=== PATIENT | female | born 1990 | race African-American/Black ===

== ENCOUNTER 2020-11-18 14:23 | Emergency (ER) | payer BC ==
[2020-11-18] MEDS ORDERED: Ketorolac 30 MG/ML SDV IVPUSH ONE (18:12)
[2020-11-18] MEDS ORDERED: Sodium Chloride 0.9% 2.5 ML Syringe FLUSH PRN (18:12)
[2020-11-18] MEDS ORDERED: Sodium Chloride 0.9% 10 ML Syringe FLUSH PRN (18:12)
[2020-11-18] MEDS ORDERED: Sodium Chloride 0.9% 1,000 ML IV ONE (18:12)
[2020-11-18] MEDS ORDERED: Ondansetron 4 MG/2 ML SDV IVPUSH ONE (18:12)
--- NOTE | 2020-11-18 18:13 | EDM.PDOC ---
ED HPI GENERAL MEDICAL PROBLEM - General Chief Complaint: Gastrointestinal Problem Stated Complaint: ABDOMINAL PAIN AND DIZZINESS Time Seen by Provider: 11/18/20 18:05 Source of Information: Reports: Patient History Limitations: Reports: No Limitations - History of Present Illness INITIAL COMMENTS - FREE TEXT/NARRATIVE: HISTORY AND PHYSICAL: History of present illness: The patient is a 30-year-old female who presents to the emergency room with complaints of right flank pain, dizziness and nausea for the past 2 weeks. She states that her right flank pain is intermittent and as she gets the pain she becomes nauseated and dizzy. She has been unable to eat normally or drink normally. The patient denies any kind of urinary symptoms such as dysuria, frequency, or hematuria. The patient has not been taking any [id number] medications for her pain or discomfort. The patient has never experienced any pain like this previously. Patient denies any fever, chills, headache, change in vision, syncope or near syncope. Denies any chest pain, back pain, shortness of breath or cough. Denies any diarrhea or constipation. In the emergency department the patient is hemodynamically stable with a pulse of 66 and a blood pressure of 126/86. The patient is afebrile with a temperature of 97.2. The patient's SPO2 is 96% on room air. Review of systems: As per history of present illness and below otherwise all systems reviewed and negative. Past medical history: As per history of present illness and as reviewed below otherwise noncontributory. Surgical history: As per history of present illness and as reviewed below otherwise noncontributory. Social history: See social history for further information Family history: As per history of present illness and as reviewed below otherwise noncontributory. Physical exam: General: Well developed and well nourished. Alert and orientated x 3. Nontoxic in appearance and in no acute distress. Vital signs are stable and have been reviewed by me. Nursing notes were reviewed. HEENT: Atraumatic, normocephalic, pupils equal and reactive bilaterally, negative for conjunctival pallor or scleral icterus, mucous membranes moist, TMs normal bilaterally, throat clear, neck supple, nontender, trachea midline. No drooling or trismus noted. No meningeal signs. No hot potato voice noted. Lungs: Clear to auscultation bilaterally. No wheezes, rales, or rhonchi. Chest nontender. Normal work of breathing, no accessory muscles used. Heart: S1S2, regular rate and rhythm without overt murmur, gallops, or rubs. No JVD. No peripheral edema Abdomen: Soft, nondistended, right tenderness. Normoactive bowel sounds. Negative for masses. Right costovertebral tenderness. Skin: Intact, warm, dry. No lesions or rashes noted. Hematologic: No petechiae or purpra. Mucosa appropriate color and normal nail bed color and refill. Extremities: Atraumatic, moves all extremities per self without difficulty or deficits, negative for cords or calf pain. Neurovascular unremarkable. Neuro: Awake, alert, oriented. Cranial nerves II through XII unremarkable. Cerebellum unremarkable. Motor and sensory unremarkable throughout. Exam no nfocal. Psychiatric: Mood and affect are appropriate. Normal thought process. Answering questions appropriately. Notes: *This patient was seen and evaluated during the 2019 SARS-CoV-2 [facility] pandemic period. Community viral transmission is ongoing at time of this encounter and the emergency department is operating under pandemic response procedures. As stated above the patient is a 30-year-old female who presents to the emergency room with increasing right flank pain that started approximately 2 weeks ago. The pain is intermittent and when it comes the patient becomes dizzy and nauseated. She has been decreasing her food intake and her fluid intake. I will obtain a CBC, CMP, and abdominal/pelvis CT. To rule out any metabolic. We will give the patient IV fluids, Toradol for her pain and Zofran for nausea. The patient is agreeable with this plan. Patient had further complaints of pain I prescribed a Dilaudid 1 mg IV. Abdomen/pelvis CT MPRESSION: Negative noncontrast CT of the abdomen and pelvis. No finding to explain abdominal pain or distention. Specifically the GI tract is normal. The patient CBC is unremarkable. The patient's CMP is unremarkable. The patient's urinalysis does show some trace protein trace ketones and trace leukocyte Estrace. Negative for nitrate. Most likely from a contaminant. Form the patient of the results. While I cannot identify the patient's source of right flank pain I do not find any emergent cause. As this could be muscular in nature I will give the patient Norflex 60 mg IM in the emergency room. Any prescription for Norflex 100 mg p.o. twice daily for 10 days. I have advised the patient to follow-up with her primary care for further work-up. I gave the patient symptoms for return to the emergency department. The patient verbalized understanding and is agreeable with this discharge plan. I have talked with the patient about today's findings, in addition to providing specific details for plan of care. Reassessment at the time of disposition demonstrates that the patient is in no acute distress. The patient is stable for discharge, counseling was provided and we discussed in great detail signs and symptoms that would prompt them to return to the Emergency Department. Medication, follow up and supportive care measures were reviewed and discussed. Voices understanding and is agreeable to plan of care. Denies any further questions or concerns at this time. Diagnostics: CT, CMP, abdomen/pelvis CT Therapeutics: Fluids, Toradol, Zofran Impression: Abdominal pain Plan: 1. You were evaluated today on an emergent basis. Your complaints of right abdominal and flank pain were evaluated with blood work which was normal. Your urinalysis did not reveal an infection. Your abdomen pelvis CT was negative. You were treated with IV fluids, Toradol for pain control and Zofran for your nausea. You were then treated with Dilaudid which is a narcotic for increased pain. You cannot drive for at least 8 hours after having the Dilaudid. As this could be muscular in nature you were treated with Norflex 60 mg intramuscularly. Have given you a prescription for Norflex 100 mg twice a day for 10 days as needed for pain. I am unable to explain why you are having abdominal pain but it does not appear to be anything emergent. You need to follow-up with your primary care or TRAINING OFFICER for more definitive care. If your pain worsens and you are unable to get relief please return to the emergency department. 2. You can Tylenol 650 mg every 4 hours as needed for pain. You can use Motrin 600 mg every 6 hours as needed for pain. 3. We encourage you to follow up with your primary care provider and/or recommended specialist in the next few days for re-evaluation and further care/management. 4. If your symptoms should worsen, new symptoms develop or any of the signs and symptoms we discussed should arise please return to the emergency room or call 911 (if needed). Definitive disposition and diagnosis as appropriate pending reevaluation and review of above. right lower quadrant Pain Score (Numeric/FACES): 7 - Related Data Allergies Allergy/AdvReac Type Severity Reaction Status Date / Time No Known Allergies Allergy Verified 11/18/20 15:45 Home Meds: Home Meds Orphenadrine [Norflex] 100 mg PO BID PRN 10 Days #20 tab 11/18/20 [Rx] Past Medical History - Past Health History Medical/Surgical History: Denies Medical/Surgical History - Infectious Disease History Infectious Disease History: Reports: Chicken Pox Social & Family History - Tobacco Use Tobacco Use Status *Q: Never Tobacco User - Recreational Drug Use Recreational Drug Use: No ED ROS GENERAL - Review of Systems Review Of Systems: Comprehensive ROS is negative, except as noted in HPI. ED EXAM, RENAL/ - Physical Exam Exam: See Below (See dictation) Course - Vital Signs Last Recorded V/S: Last Vital Signs Temp 97.2 F 11/18/20 15:42 Pulse 80 11/18/20 20:07 Resp 19 11/18/20 20:07 BP 131/84 11/18/20 20:07 Pulse Ox 97 11/18/20 20:07 - Orders/Labs/Meds Labs: Laboratory Tests 11/18/20 11/18/20 11/18/20 Range/Units 15:49 18:28 18:28 WBC 9.25 (4.0-11.0) K/uL RBC 5.23 (4.30-5.90) M/uL Hgb 14.1 (12.0-16.0) g/dL Hct 40.8 (36.0-46.0) % MCV 78.0 L (80.0-98.0) fL MCH 27.0 (27.0-32.0) pg MCHC 34.6 (31.0-37.0) g/dL RDW Std Deviation 43.5 (28.0-62.0) fl RDW Coeff of Yakov 15 (11.0-15.0) % Plt Count 325 (150-400) K/uL MPV 8.80 (7.40-12.00) fL Neut % (Auto) 57.2 (48.0-80.0) % Lymph % (Auto) 33.7 (16.0-40.0) % [place] % (Auto) 8.5 (0.0-15.0) % Eos % (Auto) 0.3 (0.0-7.0) % Baso % (Auto) 0.3 (0.0-1.5) % Neut # (Auto) 5.3 (1.4-5.7) K/uL Lymph # (Auto) 3.1 H (0.6-2.4) K/uL [place] # (Auto) 0.8 (0.0-0.8) K/uL Eos # (Auto) 0.0 (0.0-0.7) K/uL Baso # (Auto) 0.0 (0.0-0.1) K/uL Nucleated RBC % 0.0 /100WBC Nucleated RBCs # 0 K/uL Sodium 136 (136-145) mmol/L Potassium 4.2 (3.5-5.1) mmol/L Chloride 102 (98-107) mmol/L Carbon Dioxide 24.3 (21.0-32.0) mmol/L BUN 13 (7.0-18.0) mg/dL Creatinine 0.8 (0.6-1.0) mg/dL Est Cr Clr Drug Dosing 101.81 mL/min Estimated GFR (MDRD) > 60.0 ml/min Glucose 104 (74-106) mg/dL Calcium 9.2 (8.5-10.1) mg/dL Total Bilirubin 0.3 (0.2-1.0) mg/dL AST 31 (15-37) IU/L ALT 35 (14-63) IU/L Alkaline Phosphatase 105 (46-116) U/L Total Protein 8.7 H (6.4-8.2) g/dL Albumin 3.9 (3.4-5.0) g/dL Globulin 4.8 H (2.6-4.0) g/dL Albumin/Globulin Ratio 0.8 L (0.9-1.6) Urine Color YELLOW Urine Appearance CLEAR Urine pH 6.0 (5.0-8.0) Ur Specific [place] 1.025 (1.001-1.035) Urine Protein TRACE H (NEGATIVE) mg/dL Urine Glucose (UA) NEGATIVE (NEGATIVE) mg/dL Urine Ketones TRACE H (NEGATIVE) mg/dL Urine Occult Blood NEGATIVE (NEGATIVE) Urine Nitrite NEGATIVE (NEGATIVE) Urine Bilirubin NEGATIVE (NEGATIVE) Urine Urobilinogen 0.2 (<2.0) EU/dL Ur Leukocyte Esterase TRACE H (NEGATIVE) Urine RBC 0-1 (0-2/HPF) Urine WBC 0-2 (0-5/HPF) Ur Epithelial Cells FEW (NONE-FEW) Urine Bacteria FEW (NEGATIVE) Meds: Medications Discontinued Medications Generic Name Dose Route Start Last Admin Trade Name Freq PRN Reason Stop Dose Admin Hydromorphone HCl 1 mg 11/18/20 19:16 11/18/20 20:00 Hydromorphone 1 Mg/Ml Syringe IVPUSH 11/18/20 19:17 Not Given ONETIME ONE Sodium Chloride 1,000 mls @ 999 mls/hr 11/18/20 18:12 11/18/20 18:36 Normal Saline IV 11/18/20 19:12 999 mls/hr .BOLUS ONE Administration Ketorolac Tromethamine 30 mg 11/18/20 18:12 11/18/20 18:39 Ketorolac 30 Mg/Ml Sdv IVPUSH 11/18/20 18:13 30 mg ONETIME ONE Administration Ondansetron HCl 4 mg 11/18/20 18:12 11/18/20 18:37 Ondansetron 4 Mg/2 Ml Sdv IVPUSH 11/18/20 18:13 4 mg ONETIME ONE Administration Orphenadrine Citrate 60 mg 11/18/20 19:33 Orphenadrine 60 Mg/2 Ml Inj IM 11/18/20 19:34 ONETIME ONE Orphenadrine Citrate 60 mg 11/18/20 19:36 Orphenadrine 60 Mg/2 Ml Inj IM 11/18/20 19:37 ONETIME ONE Orphenadrine Citrate 60 mg 11/18/20 20:02 11/18/20 20:05 Orphenadrine 60 Mg/2 Ml Inj IM 11/18/20 20:03 60 mg ONETIME ONE Administration Orphenadrine Citrate Confirm 11/18/20 20:03 11/18/20 20:06 Orphenadrine 60 Mg/2 Ml Inj Administered 11/18/20 20:04 Not Given Dose 60 mg .ROUTE .STK-MED ONE Sodium Chloride 10 ml 11/18/20 18:12 11/18/20 18:42 Sodium Chloride 0.9% 10 Ml Syringe FLUSH 10 ml ASDIRECTED PRN Administration Keep Vein Open Sodium Chloride 2.5 ml 11/18/20 18:12 11/18/20 18:42 Sodium Chloride 0.9% 2.5 Ml Syringe FLUSH 2.5 ml ASDIRECTED PRN Administration Keep Vein Open Departure - Departure Time of Disposition: 19:41 Disposition: Home, Self-Care 01 Condition: Good Clinical Impression: Abdominal pain - Discharge Information *PRESCRIPTION DRUG MONITORING PROGRAM REVIEWED*: Not Applicable *COPY OF PRESCRIPTION DRUG MONITORING REPORT IN PATIENT MICHELLE: Not Applicable Prescriptions: Orphenadrine [Norflex] 100 mg PO BID PRN 10 Days #20 tab PRN Reason: Muscle Spasm - Painful Instructions: Abdominal Pain, Adult, [id number] Referrals: PCP,None [Primary Care Provider] - Forms: ED Department Discharge Additional Instructions: The following information is given to patients seen in the emergency department who are being discharged to home. This information is to outline your options for follow-up care. We provide all patients seen in our emergency department with a follow-up referral. The need for follow-up, as well as the timing and circumstances, are variable depending upon the specifics of your emergency department visit. If you don't have a primary care physician on staff, we will provide you with a referral. We always advise you to contact your personal physician following an emergency department visit to inform them of the circumstance of the visit and for follow-up with them and/or the need for any referrals to a consulting specialist. The emergency department will also refer you to a specialist when appropriate. This referral assures that you have the opportunity for follow-up care with a specialist. All of these measure are taken in an effort to provide you with optimal care, which includes your follow-up. Under all circumstances we always encourage you to contact your private physician who remains a resource for coordinating your care. When calling for follow-up care, please make the office aware that this follow-up is from your recent emergency room visit. If for any reason you are refused follow-up, please contact the [facility] Emergency Department at and asked to speak to the emergency department charge nurse. [facility] [address] [place] [id number] [address] [address] Plan: 1. You were evaluated today on an emergent basis. Your complaints of right abdominal and flank pain were evaluated with blood work which was normal. Your urinalysis did not reveal an infection. Your abdomen pelvis CT was negative. You were treated with IV fluids, Toradol for pain control and Zofran for your nausea. You were then treated with Dilaudid which is a narcotic for increased pain. You cannot drive for at least 8 hours after having the Dilaudid. As this could be muscular in nature you were treated with Norflex 60 mg intramuscularly. Have given you a prescription for Norflex 100 mg twice a day for 10 days as needed for pain. I am unable to explain why you are having abdominal pain but it does not appear to be anything emergent. You need to follow-up with your primary care or TRAINING OFFICER for more definitive care. If your pain worsens and you are unable to get relief please return to the emergency department. 2. You can Tylenol 650 mg every 4 hours as needed for pain. You can use Motrin 600 mg every 6 hours as needed for pain. 3. We encourage you to follow up with your primary care provider and/or recommended specialist in the next few days for re-evaluation and further care/management. 4. If your symptoms should worsen, new symptoms develop or any of the signs and symptoms we discussed should arise please return to the emergency room or call 911 (if needed). Sepsis Event Note (ED) - Evaluation Sepsis Screening Result: No Definite Risk
[2020-11-18 19:07] LABS: BLOOD UREA NITROGEN,BUN 13 mg/dL (7.0-18.0); CARBON DIOXIDE,CO2 24.3 mmol/L (21.0-32.0); CHLORIDE,CL 102 mmol/L (98-107); GLUCOSE RANDOM 104 mg/dL (74-106); POTASSIUM,K 4.2 mmol/L (3.5-5.1); SODIUM,NA 136 mmol/L (136-145)
[2020-11-18] MEDS ORDERED: HYDROmorphone 1 MG/ML Syringe IVPUSH ONE (19:16)
--- NOTE | 2020-11-18 19:25 | CT ---
INDICATION: Abdominal pain and distension. TECHNIQUE: CT abdomen and pelvis without contrast. COMPARISON: None. FINDINGS: Lower chest: Unremarkable. Liver: Normal in size and attenuation. No suspicious masses. Gallbladder and bile ducts: No stones or inflammation. No biliary dilatation. Pancreas: Unremarkable. No mass or inflammation. Spleen: Normal in size. No masses. Adrenal glands: Normal in size. No nodules. Kidneys: Normal in size. No suspicious masses, stones, or hydronephrosis. GI tract: Unremarkable. Normal in caliber. No sign of mass or inflammation. Normal appendix. Vasculature: Unremarkable. Lymph nodes: No lymphadenopathy. Abdominal wall/Omentum/Peritoneum: Unremarkable. No sign of mass or infiltration. No free air or significant free fluid. Pelvis: Unremarkable. No pelvic masses. Bones: Unremarkable for age. IMPRESSION: Negative noncontrast CT of the abdomen and pelvis. No finding to explain abdominal pain or distention. Specifically the GI tract is normal. Please note that all CT scans at this facility use dose modulation, iterative reconstruction, and/or weight-based dosing when appropriate to reduce radiation dose to as low as reasonably achievable. Dictated by Antoine Cedeño MD @ 11/18/2020 7:23:28 PM (Electronically Signed)
[2020-11-18] MEDS ORDERED: Orphenadrine 60 MG/2 ML Inj IM ONE ×3 (19:33→20:02)
[2020-11-18] MEDS ORDERED: Orphenadrine 60 MG/2 ML Inj ONE (20:03)
== END 2020-11-18 20:08 | disposition home or self-care (01) ==
LOC: MW.ED 14:23
DX: R10.9 Unspecified abdominal pain (principal)
CPT/HCPCS: 36415; 74176; 80053; 81001; 85025; 87086; 96372; 96374; 96375; 99284; J1885; J2360; J2405; J7030

== ENCOUNTER 2020-12-28 15:47 | Emergency (ER) | payer BC ==
[2020-12-28] MEDS ORDERED: Sodium Chloride 0.9% 1,000 ML IV ONE (16:20)
[2020-12-28] MEDS ORDERED: Ketorolac 30 MG/ML SDV IVPUSH ONE (16:20)
[2020-12-28] MEDS ORDERED: Ondansetron 4 MG/2 ML SDV IVPUSH ONE (16:20)
[2020-12-28 17:02] LABS: BLOOD UREA NITROGEN,BUN 9 mg/dL (7.0-18.0); CARBON DIOXIDE,CO2 27.1 mmol/L (21.0-32.0); CHLORIDE,CL 102 mmol/L (98-107); GLUCOSE RANDOM 108 mg/dL (74-106); LIPASE 176 U/L (73-393); POTASSIUM,K 4.2 mmol/L (3.5-5.1); SODIUM,NA 136 mmol/L (136-145)
--- NOTE | 2020-12-28 17:06 | EDM.PDOC ---
ED HPI GENERAL MEDICAL PROBLEM - General Chief Complaint: Abdominal Pain Stated Complaint: ABDOMINAL PAIN FOR MONTHS Time Seen by Provider: 12/28/20 16:03 Source of Information: Reports: Patient History Limitations: Reports: No Limitations - History of Present Illness INITIAL COMMENTS - FREE TEXT/NARRATIVE: HISTORY AND PHYSICAL: History of present illness: Patient is a 30-year-old female who presents to the emergency room with complaints of intermittent abdominal pain nausea, vomiting and diarrhea for the past 3 months. States it is sometimes associated with eating although not always. She states she was seen in the emergency room October [address] scan and lab work which was unremarkable. She states she was told this was a muscular strain although she feels this is not an appropriate diagnosis as the muscle relaxers have not helped and has been persistent over the past 3 months. Last week she saw her primary care provider at [facility] we did do lab work and an ultrasound but states she will not get results for several weeks. She states "I cannot wait that long" and decided to come to the emergency room today for evaluation. Patient denies any fever, chills, headache, change in vision, syncope or near syncope. Denies any chest pain, back pain, shortness of breath or cough. Denies any vaginal bleeding/discharge, constipation or dysuria. Has not noted any blood in urine or stool. No concern for . Patient has been eating and drinking appropriately. No recent travel or sick contacts. Review of systems: As per history of present illness and below otherwise all systems reviewed and negative. Past medical history: As per history of present illness and as reviewed below otherwise noncontributory. Surgical history: As per history of present illness and as reviewed below otherwise noncontributory. Social history: See social history for further information Family history: As per history of present illness and as reviewed below otherwise noncontributory. Physical exam: General: Well developed and well nourished 30-year-old black female. Alert and orientated x 3. Nontoxic in appearance and in no acute distress. Vital signs are stable and have been reviewed by me. Nursing notes were reviewed. HEENT: Atraumatic, normocephalic, pupils equal and reactive bilaterally, negative for conjunctival pallor or scleral icterus, mucous membranes moist, trachea midline. No drooling or trismus noted. No meningeal signs. No hot potato voice noted. Lungs: Clear to auscultation bilaterally. No wheezes, rales, or rhonchi. Chest nontender. Normal work of breathing, no accessory muscles used. Heart: S1S2, regular rate and rhythm without overt murmur, gallops, or rubs. No JVD. No peripheral edema Abdomen: Soft, obese, RUQ tenderness. Normoactive bowel sounds. Negative for masses or costovertebral tenderness. Skin: Intact, warm, dry. No lesions or rashes noted. Hematologic: No petechiae or purpra. Mucosa appropriate color and normal nail bed color and refill. Extremities: Atraumatic, moves all extremities per self without difficulty or deficits, negative for cords or calf pain. Neurovascular unremarkable. Neuro: Awake, alert, oriented. Cranial nerves II through XII unremarkable. Cerebellum unremarkable. Motor and sensory unremarkable throughout. Exam nonfocal. Psychiatric: Mood and affect are appropriate. Normal thought process. Answering questions appropriately. Please note that the patient was seen and evaluated during the 2019 SARS-CoV-2 novel coronavirus pandemic period. Community viral transmission is ongoing at time of this encounter and the emergency department is operating under pandemic response procedures. Medical Decision Making: Patient is a 30-year-old female who presents to the emergency room with complaints of abdominal pain x3 months. She states she has had intermittent nausea, vomiting and diarrhea. She has been to the ER once and her primary care provider last week, so far has been told everything's been normal. Physical exam reveals she has right upper quadrant pain. We will do basic lab work and gallbladder ultrasound. I see she had a CT of the abdomen and pelvis for this complaint on 11/18/2020 which was normal. Labs are essentially unremarkable. Normal right upper quadrant ultrasound. I have talked with the patient about today's findings, in addition to providing s pecific details for plan of care. Reassessment at the time of disposition demonstrates that the patient is in no acute distress. The patient is stable for discharge, counseling was provided and we discussed in great detail signs and symptoms that would prompt them to return to the Emergency Department. Medication, follow up and supportive care measures were reviewed and discussed. Voices understanding and is agreeable to plan of care. Denies any further questions or concerns at this time. Diagnostics: CBC, CMP, lipase, UA, urine , gallbladder ultrasound Therapeutics: IV fluid, GI cocktail, Toradol, Zofran Prescription: [place], Zofran Impression: Abdominal pain Plan: 1. You were evaluated today on an emergent basis. Your labs and gallbladder ultrasound are normal. I would suggest you continue following with Dr Rowell for appropriate referrals if you continue to have pain 2. You can alternate Tylenol and ibuprofen as needed for pain and fever management. 3. If your symptoms should worsen, new symptoms develop or any of the signs and symptoms we discussed should arise please return to the emergency room or call 911 (if needed). Definitive disposition and diagnosis as appropriate pending reevaluation and review of above. RUQ Pain Score (Numeric/FACES): 7 - Related Data Allergies Allergy/AdvReac Type Severity Reaction Status Date / Time No Known Allergies Allergy Verified 12/28/20 16:15 Home Meds: Home Meds metFORMIN [Glucophage] 500 mg PO BID 12/28/20 [History] Past Medical History - Past Health History Medical/Surgical History: Denies Medical/Surgical History HEENT History: Reports: None Cardiovascular History: Reports: None Respiratory History: Reports: None Gastrointestinal History: Reports: None Genitourinary History: Reports: None GEOPHYSICAL PROSPECTOR History: Reports: None Musculoskeletal History: Reports: None Neurological History: Reports: None Psychiatric History: Reports: None Endocrine/Metabolic History: Reports: Diabetes, Type II Hematologic History: Reports: None Immunologic History: Reports: None Oncologic (Cancer) History: Reports: None Dermatologic History: Reports: None - Infectious Disease History Infectious Disease History: Reports: Chicken Pox - Past Surgical History Head Surgeries/Procedures: Reports: None HEENT Surgical History: Reports: None Cardiovascular Surgical History: Reports: None Respiratory Surgical History: Reports: None GI Surgical History: Reports: None Female Surgical History: Reports: None Endocrine Surgical History: Reports: None Neurological Surgical History: Reports: None Musculoskeletal Surgical History: Reports: None Oncologic Surgical History: Reports: None Dermatological Surgical History: Reports: None Social & Family History - Family History Family Medical History: No Pertinent Family History - Tobacco Use Tobacco Use Status *Q: Never Tobacco User Second Hand Smoke Exposure: No - Caffeine Use Caffeine Use: Reports: None - Recreational Drug Use Recreational Drug Use: No ED ROS GENERAL - Review of Systems Review Of Systems: Comprehensive ROS is negative, except as noted in HPI. ED EXAM, GI/ABD - Physical Exam Exam: See Below (See dictation) Course - Vital Signs Last Recorded V/S: Last Vital Signs Temp 98.0 F 12/28/20 16:12 Pulse 89 12/28/20 16:12 Resp 18 12/28/20 16:12 BP 141/104 H 12/28/20 16:12 Pulse Ox 98 12/28/20 16:12 - Orders/Labs/Meds Labs: Laboratory Tests 12/28/20 12/28/20 12/28/20 Range/Units 16:30 16:30 17:05 WBC 7.32 (4.0-11.0) K/uL RBC 4.68 (4.30-5.90) M/uL Hgb 12.7 (12.0-16.0) g/dL Hct 37.5 (36.0-46.0) % MCV 80.1 (80.0-98.0) fL MCH 27.1 (27.0-32.0) pg MCHC 33.9 (31.0-37.0) g/dL RDW Std Deviation 44.8 (28.0-62.0) fl RDW Coeff of Yakov 15 (11.0-15.0) % Plt Count 275 (150-400) K/uL MPV 8.80 (7.40-12.00) fL Neut % (Auto) 46.1 L (48.0-80.0) % Lymph % (Auto) 43.2 H (16.0-40.0) % Rains % (Auto) 9.4 (0.0-15.0) % Eos % (Auto) 1.0 (0.0-7.0) % Baso % (Auto) 0.3 (0.0-1.5) % Neut # (Auto) 3.4 (1.4-5.7) K/uL Lymph # (Auto) 3.2 H (0.6-2.4) K/uL Rains # (Auto) 0.7 (0.0-0.8) K/uL Eos # (Auto) 0.1 (0.0-0.7) K/uL Baso # (Auto) 0.0 (0.0-0.1) K/uL Nucleated RBC % 0.0 /100WBC Nucleated RBCs # 0 K/uL Sodium 136 (136-145) mmol/L Potassium 4.2 (3.5-5.1) mmol/L Chloride 102 (98-107) mmol/L Carbon Dioxide 27.1 (21.0-32.0) mmol/L BUN 9 (7.0-18.0) mg/dL Creatinine 0.6 (0.6-1.0) mg/dL Est Cr Clr Drug Dosing TNP Estimated GFR (MDRD) > 60.0 ml/min Glucose 108 H (74-106) mg/dL Calcium 8.9 (8.5-10.1) mg/dL Total Bilirubin 0.4 (0.2-1.0) mg/dL AST 24 (15-37) IU/L ALT 22 (14-63) IU/L Alkaline Phosphatase 88 (46-116) U/L Total Protein 8.0 (6.4-8.2) g/dL Albumin 3.4 (3.4-5.0) g/dL Globulin 4.6 H (2.6-4.0) g/dL Albumin/Globulin Ratio 0.7 L (0.9-1.6) Lipase 176 (73-393) U/L Urine Color YELLOW Urine Appearance CLEAR Urine pH 7.5 (5.0-8.0) Ur Specific Terrell 1.015 (1.001-1.035) Urine Protein TRACE H (NEGATIVE) mg/dL Urine Glucose (UA) NEGATIVE (NEGATIVE) mg/dL Urine Ketones NEGATIVE (NEGATIVE) mg/dL Urine Occult Blood NEGATIVE (NEGATIVE) Urine Nitrite NEGATIVE (NEGATIVE) Urine Bilirubin NEGATIVE (NEGATIVE) Urine Urobilinogen 1.0 (<2.0) EU/dL Ur Leukocyte Esterase NEGATIVE (NEGATIVE) Urine RBC 0-1 (0-2/HPF) Urine WBC 0-2 (0-5/HPF) Ur Epithelial Cells OCCASIONAL (NONE-FEW) Urine Bacteria RARE (NEGATIVE) Urine Mucus LIGHT (NONE-MOD) Urine HCG, Qual (NEGATIVE) 12/28/20 Range/Units 17:05 WBC (4.0-11.0) K/uL RBC (4.30-5.90) M/uL Hgb (12.0-16.0) g/dL Hct (36.0-46.0) % MCV (80.0-98.0) fL MCH (27.0-32.0) pg MCHC (31.0-37.0) g/dL RDW Std Deviation (28.0-62.0) fl RDW Coeff of Yakov (11.0-15.0) % Plt Count (150-400) K/uL MPV (7.40-12.00) fL Neut % (Auto) (48.0-80.0) % Lymph % (Auto) (16.0-40.0) % Rains % (Auto) (0.0-15.0) % Eos % (Auto) (0.0-7.0) % Baso % (Auto) (0.0-1.5) % Neut # (Auto) (1.4-5.7) K/uL Lymph # (Auto) (0.6-2.4) K/uL Rains # (Auto) (0.0-0.8) K/uL Eos # (Auto) (0.0-0.7) K/uL Baso # (Auto) (0.0-0.1) K/uL Nucleated RBC % /100WBC Nucleated RBCs # K/uL Sodium (136-145) mmol/L Potassium (3.5-5.1) mmol/L Chloride (98-107) mmol/L Carbon Dioxide (21.0-32.0) mmol/L BUN (7.0-18.0) mg/dL Creatinine (0.6-1.0) mg/dL Est Cr Clr Drug Dosing Estimated GFR (MDRD) ml/min Glucose (74-106) mg/dL Calcium (8.5-10.1) mg/dL Total Bilirubin (0.2-1.0) mg/dL AST (15-37) IU/L ALT (14-63) IU/L Alkaline Phosphatase (46-116) U/L Total Protein (6.4-8.2) g/dL Albumin (3.4-5.0) g/dL Globulin (2.6-4.0) g/dL Albumin/Globulin Ratio (0.9-1.6) Lipase (73-393) U/L Urine Color Urine Appearance Urine pH (5.0-8.0) Ur Specific Terrell (1.001-1.035) Urine Protein (NEGATIVE) mg/dL Urine Glucose (UA) (NEGATIVE) mg/dL Urine Ketones (NEGATIVE) mg/dL Urine Occult Blood (NEGATIVE) Urine Nitrite (NEGATIVE) Urine Bilirubin (NEGATIVE) Urine Urobilinogen (<2.0) EU/dL Ur Leukocyte Esterase (NEGATIVE) Urine RBC (0-2/HPF) Urine WBC (0-5/HPF) Ur Epithelial Cells (NONE-FEW) Urine Bacteria (NEGATIVE) Urine Mucus (NONE-MOD) Urine HCG, Qual NEGATIVE (NEGATIVE) Meds: Medications Discontinued Medications Generic Name Dose Route Start Last Admin Trade Name Freq PRN Reason Stop Dose Admin Alum [place]/Mag [place]/Simeth XS 0 ml 12/28/20 18:02 15 ml/ Metoclopramide HCl 5 PO 12/28/20 18:03 mg/ Lidocaine HCl 5 ml ONETIME ONE Sodium Chloride 1,000 mls @ 999 mls/hr 12/28/20 16:20 12/28/20 16:40 Normal Saline IV 12/28/20 17:20 999 mls/hr STAT ONE Administration Ketorolac Tromethamine 30 mg 12/28/20 16:20 12/28/20 16:40 Ketorolac 30 Mg/Ml Sdv IVPUSH 12/28/20 16:21 30 mg ONETIME ONE Administration Ondansetron HCl 4 mg 12/28/20 16:20 12/28/20 16:40 Ondansetron 4 Mg/2 Ml Sdv IVPUSH 12/28/20 16:21 4 mg ONETIME ONE Administration Departure - Departure Time of Disposition: 18:17 Disposition: Home, Self-Care 01 Clinical Impression: Abdominal pain Qualifiers: Abdominal location: right upper quadrant Qualified Code(s): R10.11 - Right upper quadrant pain - Discharge Information Instructions: Abdominal Pain, Adult, [id number] Referrals: Rosy Falk DO [Primary Care Provider] - Forms: ED Department Discharge Additional Instructions: The following information is given to patients seen in the emergency department who are being discharged to home. This information is to outline your options for follow-up care. We provide all patients seen in our emergency department with a follow-up referral. The need for follow-up, as well as the timing and circumstances, are variable depending upon the specifics of your emergency department visit. If you don't have a primary care physician on staff, we will provide you with a referral. We always advise you to contact your personal physician following an emergency department visit to inform them of the circumstance of the visit and for follow-up with them and/or the need for any referrals to a consulting specialist. The emergency department will also refer you to a specialist when appropriate. This referral assures that you have the opportunity for follow-up care with a specialist. All of these measure are taken in an effort to provide you with optimal care, which includes your follow-up. Under all circumstances we always encourage you to contact your private physician who remains a resource for coordinating your care. When calling for follow-up care, please make the office aware that this follow-up is from your recent emergency room visit. If for any reason you are refused follow-up, please contact the [facility] Emergency Department at and asked to speak to the emergency department charge nurse. [facility] [address] [place] [id number] [place] [address] Thank you for choosing the [facility] emergency department in [place] for your medical needs today. It was a pleasure caring for you. Today you were seen in the emergency department for abdominal pain 1. You were evaluated today on an emergent basis. Your labs and gallbladder ultrasound are normal. I would suggest you continue following with Dr Rowell for appropriate referrals if you continue to have pain 2. You can alternate Tylenol and ibuprofen as needed for pain and fever management. 3. If your symptoms should worsen, new symptoms develop or any of the signs and symptoms we discussed should arise please return to the emergency room or call 911 (if needed). Sepsis Event Note (ED) - Evaluation Sepsis Screening Result: No Definite Risk - Focused Exam Vital Signs: Vital Signs Temp Pulse Resp BP Pulse Ox 12/28/20 16:12 98.0 F 89 18 141/104 H 98
--- NOTE | 2020-12-28 17:54 | US ---
INDICATION: Right upper quadrant pain, worse with eating. COMPARISON: CT of the abdomen and pelvis from 11/18/2020. TECHNIQUE: Ultrasound examination of the right upper quadrant was performed. FINDINGS: The gallbladder is only mildly distended, consistent with a medial 4-5 hours ago. There is otherwise normal appearance of the gallbladder, with no sign of cholelithiasis or acute cholecystitis. There is no sign of gallbladder wall thickening or pericholecystic fluid. A sonographic Hughes sign is not present, with no pain over the gallbladder during ultrasound examination. The common bile duct is normal in caliber at 5 mm. The pancreatic head and body were examined, and these are normal in appearance. The abdominal aorta and visualized portions of the inferior vena cava are normal in appearance. The liver shows no sign of mass or contour abnormality, and there is no sign of ascites. The right kidney is unremarkable. IMPRESSION: Normal right upper quadrant ultrasound. Dictated by Tao Ghotra MD @ 12/28/2020 5:52:07 PM (Electronically Signed)
[2020-12-28] MEDS ORDERED: Alum Hydro/Mag Hydro/Simeth XS 15 ML, Metoclopramide 5 MG, Lidocaine 2% 5 ML PO ONE ×3 (18:02)
== END 2020-12-28 19:17 | disposition home or self-care (01) ==
LOC: MW.ED 15:47
DX: R10.11 Right upper quadrant pain (principal); E11.9 Type 2 diabetes mellitus without complications; Z79.84 Long term (current) use of oral hypoglycemic drugs
CPT/HCPCS: 36415; 76705; 80053; 81001; 81025; 83690; 85025; 96374; 96375; 99284; A9270; J1885; J2405; J7030

== ENCOUNTER 2021-02-28 06:24 | Day surgery (SDC) | payer BC ==
[~2021-02-28 06:24] MED LIST: Lactated Ringers 1,000 ML IV SCH
--- NOTE | 2021-02-28 07:14 | PCM.PREANE ---
Preanesthetic Assessment - Procedure Proposed Procedure: EGD, Colonoscopy - Anesthesia/Transfusion/Family Hx Anesthesia History: No Prior Anesthesia Family History of Anesthesia Reaction: No Transfusion History: No Prior Transfusion(s) - Review of Systems General: No Symptoms Pulmonary: No Symptoms (Stuffy nose, sore throat) Cardiovascular: No Symptoms Gastrointestinal: No Symptoms (occas HB takes antiacids PRN) Neurological: No Symptoms Other: Reports: Diabetes (pre-diabetic on metformin) - Physical Assessment Vital Signs: Last Vital Signs Temp 96.4 F L 02/28/21 06:35 Pulse 99 02/28/21 06:35 Resp 16 02/28/21 06:35 BP 133/91 H 02/28/21 06:35 Pulse Ox 98 02/28/21 06:35 Height: 5 ft 7 in Weight: 147.871 kg - Lab Values: Laboratory Last Values Urine HCG, Qual NEGATIVE (NEGATIVE) 02/28/21 06:35 - Allergies Allergies/Adverse Reactions: Allergies Allergy/AdvReac Type Severity Reaction Status Date / Time No Known Allergies Allergy Verified 02/22/21 12:48 PreAnesthesia Questionnaire - Past Health History Medical/Surgical History: Denies Medical/Surgical History HEENT History: Reports: None Cardiovascular History: Reports: None Respiratory History: Reports: None Gastrointestinal History: Reports: GERD, Other (See Below) Other Gastrointestinal History: abdominal pain, black tarry stools Genitourinary History: Reports: None CROP SCOUT History: Reports: None Musculoskeletal History: Reports: None Neurological History: Reports: Concussion, Headaches, Chronic Psychiatric History: Other Psychiatric History: hospitalized over [place] with an "anxiety attack" but was also found to have and enlarged thyroid Endocrine/Metabolic History: Reports: Obesity/BMI 30+ Hematologic History: Reports: None Immunologic History: Reports: None Oncologic (Cancer) History: Reports: None Dermatologic History: Reports: None - Infectious Disease History Infectious Disease History: Reports: Chicken Pox - Past Surgical History Head Surgeries/Procedures: Reports: None HEENT Surgical History: Reports: None Cardiovascular Surgical History: Reports: None Respiratory Surgical History: Reports: None GI Surgical History: Reports: None Female Surgical History: Reports: None Endocrine Surgical History: Reports: None Neurological Surgical History: Reports: None Musculoskeletal Surgical History: Reports: None Oncologic Surgical History: Reports: None Dermatological Surgical History: Reports: None - SUBSTANCE USE Tobacco Use Status *Q: Never Tobacco User Recreational Drug Use History: Yes Recreational Drug Type: Reports: Marijuana/Hashish Recreational Drug Last Use: states "occasional " use Recreational Drug Route: Inhaled - HOME MEDS Home Medications: Home Meds . [No Known Home Meds] 02/09/21 [History] - CURRENT (IN HOUSE) MEDS Current Meds: Current Medications Lactated Ringer's (Ringers, Lactated) 1,000 mls @ 125 mls/hr IV [facility] Last Admin: 02/28/21 07:00 Dose: 125 mls/hr Documented by: Lactated Ringer's (Ringers, Lactated) 1,000 mls @ 125 mls/hr IV [facility]
[2021-02-28] MEDS ORDERED: fentaNYL 100 MCG/2 ML SDV ONE ×2 (07:24→08:25)
[2021-02-28] MEDS ORDERED: Propofol 200 MG/20 ML SDV ONE (07:24)
[2021-02-28] MEDS ORDERED: Lidocaine 2% 5 ML SDV ONE (08:23)
--- NOTE | 2021-02-28 08:38 | PCM.POSTAN ---
POST ANESTHESIA ASSESSMENT - MENTAL STATUS Mental Status: Alert, Oriented - VITAL SIGNS Vital Signs: Last Vital Signs Temp 96.4 F L 02/28/21 06:35 Pulse 99 02/28/21 06:35 Resp 16 02/28/21 06:35 BP 133/91 H 02/28/21 06:35 Pulse Ox 98 02/28/21 06:35 - RESPIRATORY Respiratory Status: Respiratory Rate WNL, Airway Patent, O2 Saturation Stable - CARDIOVASCULAR CV Status: Pulse Rate WNL, Blood Pressure Stable - GASTROINTESTINAL GI Status: No Symptoms - PAIN Pain Score: 0 - POST OP HYDRATION Hydration Status: Adequate & Stable
--- NOTE | 2021-02-28 08:39 | PCM.OPNOTE ---
- General Post-Op/Procedure Note Date of Surgery/Procedure: 02/28/21 Operative Procedure(s): egd w bx. colonoscopy w bx Findings: see [id number] Pre Op Diagnosis: BRBPR and abd pain Post-Op Diagnosis: Same Anesthesia Technique: Moderate Sedation Primary Surgeon: Mike Heard Pathology: egd bx random colon bx Complications: None Condition: Good
--- NOTE | 2021-02-28 08:49 | PCM48HPAN ---
Post Anesthesia Note - EVALUATION WITHIN 48HRS OF ANESTHETIC Vital Signs in Normal Range: Yes Patient Participated in Evaluation: Yes Respiratory Function Stable: Yes Airway Patent: Yes Cardiovascular Function Stable: Yes Hydration Status Stable: Yes Pain Control Satisfactory: Yes Nausea and Vomiting Control Satisfactory: Yes Mental Status Recovered: Yes Vital Signs: Last Vital Signs Temp 98.1 F 02/28/21 08:34 Pulse 74 02/28/21 08:44 Resp 18 02/28/21 08:44 BP 110/77 02/28/21 08:44 Pulse Ox 96 02/28/21 08:44 - COMMENTS/OBSERVATIONS Free Text/Narrative:: Pt doing well post-op. VSS. No apparent anesthetic complications. Dr. Shawn Barrera
--- NOTE | 2021-02-28 11:37 | OR ---
SURGEON: Mike Heard MD DATE OF PROCEDURE: 02/28/2021 PREOPERATIVE DIAGNOSES: Bright red blood per rectum and abdominal pain. POSTOPERATIVE DIAGNOSES: Bright red blood per rectum and abdominal pain. PROCEDURES PERFORMED: 1. Esophagogastroduodenoscopy with biopsy. 2. Colonoscopy with biopsy. DESCRIPTION OF PROCEDURE: EGD: The patient was taken to the endoscopy room, and with the IVORY CARVER, Diprivan was administered. A well-lubricated EGD scope was gently inserted through the oropharynx, down the esophagus, passing through the gastroesophageal junction, into the stomach. The mucosa was examined upon the passage. Any etiology will be noted. Once in the stomach, we continued to advance to the distal antrum, passed through the pylorus into the second portion of the duodenum. Again, the mucosa was examined for any abnormality and etiology. The scope was then retrieved back to the stomach and then retroflexed to look at the fundus of the stomach. If a biopsy was indicated, we will biopsy the antrum, body, and gastroesophageal junction. The air will be sucked out while the scope is retrieved to reduce the patient's discomfort. The patient tolerated the procedure well. There were no intraoperative complications. Dr. Heard was present through the whole procedure. Prior to surgery, a time-out had been called, the patient identified, procedure identified and antibiotic administered. Colonoscopy with biopsy: The patient was taken to the endoscopy room. A time out was called, patient identified, and procedure identified. Diprivan was then administrated. Patient went from awake to sleep, hearing doctor talking or door closing is normal. Perineum inspection and digital examination were then performed. A well-lubricated colonoscope was gently inserted through the rectum, advanced past the rectosigmoid junction, the descending colon, splenic flexure, transverse colon, hepatic flexure, ascending colon, arrived to the cecum. Cecum was identified as dictated in the finding. Then the scope was carefully withdrawn while attention was paid to the mucosal surface for any abnormality. Air will be sucked out during the scope withdrawal. At the rectum, retroflexed to examine any rectal diseases, fistula or hemorrhoids. During mucosal examination, abnormality or polyp was noted; picture taken and biopsy performed. Patient tolerated procedure well. There were no intraoperative complications, and Dr. Heard was present throughout the whole procedure. FINDINGS: EGD findings: 1. Patient is easily sedated with IVORY CARVER and Diprivan, patient is soundly snoring. 2. Oropharynx and proximal esophagus are free of disease and inflammation or stricture. Distal esophagus at GE junction at 40 shows mild salmon-colored change, suggests mild acid reflux. Stomach rugae are normal in appearance and antrum looks mildly inflamed, consistent with mild gastritis. Duodenum is grossly normal. Retroflexed look at the fundus of stomach, there is no hiatal hernia. Biopsy done in antrum, body, GE junction at 40, and sucked out the gas while scope pulling out. During the whole study, there is no food, blood, or saul ulcer observed. There is a little bit bile in the stomach. Colonoscopy findings: 1. Patient is easily sedated with IVORY CARVER and Diprivan, patient is soundly snoring. 2. Bowel prep is average with some liquid stool, no semi-formed stool, no stool ball. 3. Colon is rather straightforward. Cecum indicated by ileocecal fold, one-to- one indentation, appendiceal orifice, and ScopeGuide is pointing south. Mucosa examined upon scope pulling out with some irrigation. Patient does not have diverticulosis, polyp, mass, growth, inflammation, stricture, AV malformation, bleeding, none of those. Random biopsy was done for abdominal pain. Patient has mild internal hemorrhoids, no external hemorrhoid. Patient would benefit from repeat colonoscopy in 10 years from today or if the biopsy or clinically indicated otherwise. TOM / NANCY /[id number]
== END 2021-02-28 09:24 | disposition home or self-care (01) ==
LOC: MW.SDS 06:24
PROVIDERS: ATTEND Surgery
DX: K92.1 Melena (principal); K64.8 Other hemorrhoids; K31.89 Other diseases of stomach and duodenum; I78.1 Nevus, non-neoplastic; E66.9 Obesity, unspecified; K21.9 Gastro-esophageal reflux disease without esophagitis; Z68.43 Body mass index [BMI] 50.0-59.9, adult
CPT/HCPCS: 43239; 45380; 81025; J2704; J3010; J7120; 00813

== ENCOUNTER 2021-06-21 13:23 | Emergency (ER) | payer BC ==
[2021-06-21] MEDS ORDERED: Bacitracin Oint 1 GM U/D Packet TOP ONE (13:58)
== END 2021-06-21 14:27 | disposition home or self-care (01) ==
LOC: MW.ED 13:23
DX: Z48.00 Encounter for change or removal of nonsurgical wound dressing (principal); E66.9 Obesity, unspecified; Z68.43 Body mass index [BMI] 50.0-59.9, adult
CPT/HCPCS: 99282

== ENCOUNTER 2022-02-26 18:11 | Emergency (ER) | payer BC, OTHER ==
[2022-02-26 20:17] LABS: CORONAVIRUS COVID-19 NAA NEGATIVE (NEGATIVE); INFLUENZA A NAA POSITIVE (NEGATIVE); INFLUENZA B NAA NEGATIVE (NEGATIVE); RESPIRATORY SYNCYTIAL VIR NAA NEGATIVE (NEGATIVE)
[2022-02-26] MEDS ORDERED: Ketorolac 60 MG/2 ML SDV IM ONE (21:16)
== END 2022-02-26 21:49 | disposition home or self-care (01) ==
LOC: MW.ED 18:11
DX: J10.1 Influenza due to other identified influenza virus with other respiratory manifestations (principal); E11.9 Type 2 diabetes mellitus without complications; E66.9 Obesity, unspecified; Z68.43 Body mass index [BMI] 50.0-59.9, adult; Z20.822 Contact with and (suspected) exposure to COVID-19; Z79.899 Other long term (current) drug therapy; Z79.84 Long term (current) use of oral hypoglycemic drugs
CPT/HCPCS: 0241U; 96372; 99284; J1885

== ENCOUNTER 2022-08-18 08:04 | Emergency (ER) | payer OTHER ==
[2022-08-18] MEDS ORDERED: Ondansetron 4 MG/2 ML SDV IVPUSH ONE (08:22)
[2022-08-18] MEDS ORDERED: Sodium Chloride 0.9% 1,000 ML IV ONE (08:22)
[2022-08-18] MEDS ORDERED: Loperamide 2 MG Cap PO STA (08:24)
[2022-08-18] MEDS ORDERED: Morphine 4 MG/ML Syringe IVPUSH ONE (08:24)
[2022-08-18 08:29] LABS: HEMATOCRIT 36.8 % (36.0-46.0); HEMOGLOBIN 12.2 g/dL (12.0-16.0); MEAN CORPUSCULAR HGB CONC 33.2 g/dL (31.0-37.0); MEAN CORPUSCULAR VOLUME 81.4 fL (80.0-98.0); NRBC ABSOLUTE 0 K/uL; PLATELET COUNT,PLT 271 K/uL (150-400); RED BLOOD CELL COUNT 4.52 M/uL (4.30-5.90)
[2022-08-18 08:30] LABS: APPEARANCE,URINE SLT CLOUDY; BILIRUBIN,URINE NEGATIVE (NEGATIVE); COLOR,URINE YELLOW; GLUCOSE,URINE NEGATIVE (NEGATIVE); KETONES,URINE NEGATIVE (NEGATIVE); LEUKOCYTE ESTERASE,URINE NEGATIVE (NEGATIVE); NITRITE,URINE NEGATIVE (NEGATIVE); OCCULT BLOOD,URINE NEGATIVE (NEGATIVE); PROTEIN,URINE TRACE mg/dL (NEGATIVE); UROBILINOGEN,URINE 0.2 EU/dL (<2.0)
[2022-08-18 08:38] LABS: BACTERIA,URINE 1+ (NEGATIVE); EPITHELIAL CELLS,URINE MODERATE (NONE-FEW); MUCUS,URINE LIGHT (NONE-MOD); RBC,URINE 0-2 (0-2/HPF); WBC,URINE 0-3 (0-5/HPF)
[2022-08-18 08:43] LABS: BASOPHILS ABSOLUTE MAN 0.1 (0.0-0.1); BASOPHILS PERCENT MAN 1 % (0.0-1.5); EOSINOPHILS ABSOLUTE MAN 1.7 (0.0-0.7); EOSINOPHILS PERCENT MAN 23 % (0.0-7.0); LYMPHOCYTES ABSOLUTE MAN 2.5 (0.6-2.4); LYMPHOCYTES PERCENT MAN 34 % (16.0-40.0); MONOCYTES ABSOLUTE MAN 0.4 (0.0-0.8); MONOCYTES PERCENT MAN 6 % (0.0-15.0); SEG NEUTROPHILS ABSOLUTE MAN 2.6 (1.4-5.7); SEG NEUTROPHILS PERCENT MAN 36 % (48.0-80.0)
[2022-08-18 08:47] LABS: A/G RATIO 0.8 (0.9-1.6); ALBUMIN 3.4 g/dL (3.4-5.0); BILIRUBIN TOTAL 0.5 mg/dL (0.2-1.0); CALCIUM 9.2 mg/dL (8.5-10.1); CARBON DIOXIDE,CO2 25.4 mmol/L (21.0-32.0); CREATININE 0.7 mg/dL (0.6-1.0); EST CRCL DRUG DOSING (CG) 115.32 mL/min; PROTEIN TOTAL,TP 7.5 g/dL (6.4-8.2)
== END 2022-08-18 10:45 | disposition home or self-care (01) ==
LOC: MW.ED 08:04
DX: R10.11 Right upper quadrant pain (principal); R19.7 Diarrhea, unspecified; R11.10 Vomiting, unspecified; E11.9 Type 2 diabetes mellitus without complications; E66.9 Obesity, unspecified; Z79.84 Long term (current) use of oral hypoglycemic drugs; Z68.42 Body mass index [BMI] 45.0-49.9, adult
CPT/HCPCS: 36415; 76705; 80053; 81001; 81025; 83690; 85025; 96361; 96374; 96375; 99284; A9270; J2270; J2405; J7030

== ENCOUNTER 2024-07-18 17:13 | Emergency (ER) | payer OTHER | END 2024-07-18 19:05 | disposition home or self-care (01) | LOC: MW.ED 17:13 | DX: S89.92XA Unspecified injury of left lower leg, initial encounter (principal); E11.9 Type 2 diabetes mellitus without complications; E66.9 Obesity, unspecified; Z68.42 Body mass index [BMI] 45.0-49.9, adult; Z75.3 Unavailability and inaccessibility of health-care facilities; Z79.890 Hormone replacement therapy; Z79.899 Other long term (current) drug therapy; X50.1XXA Overexertion from prolonged static or awkward postures, initial encounter | CPT/HCPCS: 73562-26-LT; 73562-LT; 99282; 99283 ==